=== PATIENT | female | born 1990 | race Two or more races ===

== ENCOUNTER → 2025-02-23 | Outpatient (CLI) | payer MEDICAID, SELFPAY ==
--- NOTE | 2025-02-23 08:45 | XR_ITS ---
Examination: Abdomen sonogram, complete Date and time of exam: February 23, 2025 0915 hours INDICATIONS: Elevated liver enzymes on laboratory examination December 2024. Technique: Multiple real-time grayscale transabdominal sonographic images of the abdomen have been obtained. Findings: Absent gallbladder Normal common bile duct 0.3 cm Pancreatic head 3.1 cm Aorta not enlarged Liver 16.3 cm fatty infiltration no focal liver lesions Normal hepatopedal portal venous flow Patent IVC Right kidney 11.0 cm cortex 1.6 cm Left kidney 11.7 cm cortex 2.4 cm Mild renal parenchymal scar formation Spleen 10.9 cm IMPRESSION: Normal common bile duct Mild hepatomegaly fatty liver
== END | disposition home or self-care (01) ==
PROVIDERS: PCP Physician Assistant; Referring Provider Physician Assistant; Visit Provider Physician Assistant
DX: K76.0 Fatty (change of) liver, not elsewhere classified (principal)
CPT/HCPCS: 76700